=== PATIENT | female | born 1965 | race Caucasian/White ===

== ENCOUNTER → 2024-12-07 07:13 | Outpatient (REF) | payer BC, SELFPAY | LOC: HWWDC 07:13 | PROVIDERS: ATTENDING PHYSICIAN Obstetrics & Gynecology Gynecology | DX: Z12.31 Encounter for screening mammogram for malignant neoplasm of breast (principal) | CPT/HCPCS: 77063; 77067 ==

== ENCOUNTER → 2025-01-25 16:34 | Outpatient (REF) | payer BC, SELFPAY ==
[2025-01-25 17:08] LABS: Blood Urea Nitrogen 16 mg/dl (7-17); Carbon Dioxide 30 mmol/L (22-30); Chloride 106 mmol/L (98-107); Glucose 85 mg/dl (70-99); eGFR > 60.00
[2025-01-25 17:20] LABS: Calcium 9.6 mg/dl (8.4-10.2); Potassium 4.4 mmol/L (3.5-5.1); Sodium 141 mmol/L (135-145)
== END ==
LOC: RAD 16:34
PROVIDERS: ATTENDING PHYSICIAN Nurse Practitioner Family; FAMILY PHYSICIAN Family Medicine
DX: R10.32 Left lower quadrant pain (principal)
CPT/HCPCS: 36415; 74177; 80048; Q9967